=== PATIENT | male | born 1955 | race African-American/Black ===

== ENCOUNTER 2017-01-13 11:12 | Emergency (ER) | payer MEDICARE, MEDICAID ==
[2017-01-13] MEDS ORDERED: ONDANSETRON 4 MG TAB.RAPDIS PO ONE (12:35)
[2017-01-13] MEDS ORDERED: NORMAL SALINE 1000 ML 1,000 ML IV ONE (12:43)
--- NOTE | 2017-01-13 12:46 | ER Document Report ---
ED Medical Screen (RME) - General Mode of Arrival: Ambulatory Information source: Patient TRAVEL OUTSIDE OF THE [place] IN LAST 30 DAYS: No - HPI Patient complains to provider of: Epigastric and right rib pain Onset: Other - "A couple days ago" Associated Symptoms: Other - See notes above Relieved by: Food <LAWANDA OCONNELL - Last Filed: 01/13/17 12:49> <YOSEF NAVARRO - Last Filed: 01/13/17 12:49> - General Chief Complaint: Abdominal Pain Stated Complaint: ABDOMINAL PAIN/BACK PAIN/WEAKNESS Time Seen by Provider: 01/13/17 12:34 Notes: 61-year-old male presents to the ED complaining of epigastric tenderness to palpation and tenderness under the right rib for the past couple days. Patient reports that the pain worsened last night and is also complaining of distention. Patient was seen at an urgent care 3 days ago and was told that his symptoms are likely due to acid reflux. Patient denies history of a cholecystectomy. Patient reports that symptoms are better after eating. I have greeted and performed a rapid initial assessment of this patient. A comprehensive ED assessment and evaluation of the patient, analysis of test results and completion of the medical decision making process will be conducted by additional ED providers. (LAWANDA OCONNELL) - Related Data Allergies/Adverse Reactions: doxycycline [Doxycycline] Allergy (Verified 01/13/17 11:41) nausea, vomiting, diarrhea Past Medical History - General Information source: Patient - Social History Chew tobacco use (# tins/day): No Frequency of alcohol use: None Drug Abuse: None Family history: Reviewed & Not Pertinent - Past Medical History Cardiac Medical History: Reports: Hx Hypercholesterolemia Endocrine Medical History: Reports: Hx Diabetes Mellitus Type 2, Hx Hypothyroidism Renal/ Medical History: Denies: Hx Peritoneal Dialysis GI Medical History: Reports: Hx Gastroesophageal Reflux Disease Musculoskeltal Medical History: Denies Hx Arthritis, Reports Hx Musculoskeletal Trauma Psychiatric Medical History: Reports: Hx Bipolar Disorder, Hx Depression - Immunizations Immunizations up to date: Yes Hx Diphtheria, Pertussis, Tetanus Vaccination: Yes - 2003 <LAWANDA OCONNELL - Last Filed: 01/13/17 12:49> Review of Systems - Review of Systems Constitutional: No symptoms reported EENT: No symptoms reported Cardiovascular: No symptoms reported Respiratory: No symptoms reported Gastrointestinal: See HPI, Abdomen distended, Abdominal pain - Epigastric Genitourinary: No symptoms reported Male Genitourinary: No symptoms reported Musculoskeletal: See HPI, Other - right rib pain Skin: No symptoms reported Hematologic/Lymphatic: No symptoms reported Neurological/Psychological: No symptoms reported -: Yes All other systems reviewed and negative <LAWANDA OCONNELL - Last Filed: 01/13/17 12:49> Physical Exam - General General appearance: Alert In distress: None - HEENT Head: Normocephalic, Atraumatic Eyes: Normal Extraocular movements intact: Yes Pupils: PERRL - Respiratory Respiratory status: No respiratory distress - Abdominal Inspection: Normal <OCONNELL,LAWANDA - Last Filed: 01/13/17 12:49> - Abdominal Tenderness: Tender - epigastric, RUQ, mild <YOSEF NAVARRO - Last Filed: 01/13/17 12:49> - Vital signs Vitals: Temp Pulse Resp BP Pulse Ox 98.4 F 63 20 148/85 H 98 01/13/17 11:43 01/13/17 11:43 01/13/17 11:43 01/13/17 11:43 01/13/17 11:43 Course <OCONNELLJU PHOENIXUR - Last Filed: 01/13/17 12:49> <YOSEF NAVARRO - Last Filed: 01/13/17 12:49> - Re-evaluation Re-evalutation: 01/13/17 12:49 I personally performed the services described in the documentation, reviewed and edited the documentation which was dictated to the scribe in my presence, and it accurately records my words and actions. (YOSEF NAVARRO) - Vital Signs Vital signs: Temp Pulse Resp BP Pulse Ox 98.4 F 63 20 148/85 H 98 01/13/17 11:43 01/13/17 11:43 01/13/17 11:43 01/13/17 11:43 01/13/17 11:43
--- NOTE | 2017-01-13 12:54 | ER Document Report ---
ED GI/ - General Chief Complaint: Abdominal Pain Stated Complaint: ABDOMINAL PAIN/BACK PAIN/WEAKNESS Time Seen by Provider: 01/13/17 12:34 Mode of Arrival: Ambulatory Information source: Patient Notes: Patient reports a 5 day history of upper abdominal pain that radiates across his abdomen into the back area. Patient complains of feeling bloated. Patient reports nausea. Patient denies any vomiting or diarrhea. Patient denies any urinary symptoms. Patient states he was recently seen in urgent care and diagnosed with reflux. Patient does report that pain increases after eating. TRAVEL OUTSIDE OF THE [place] IN LAST 30 DAYS: No - HPI Patient complains to provider of: Abdominal pain. No: Diarrhea, Urinary retention, Vomiting Onset: Other - 5 days Timing/Duration: Waxing and waning Quality of pain: Achy Pain Level: 3 Location: Epigastric Associated symptoms: Nausea. denies: Chest pain, Diarrhea, Fever, Loss of appetite, Shortness of breath, Urinary hesitancy, Urinary frequency, Urinary retention Exacerbated by: Food Relieved by: Denies Similar symptoms previously: Yes Recently seen / treated by doctor: Yes - Related Data Allergies/Adverse Reactions: doxycycline [Doxycycline] Allergy (Verified 01/13/17 11:41) nausea, vomiting, diarrhea Past Medical History - General Information source: Patient - Social History Smoking Status: Never Smoker Chew tobacco use (# tins/day): No Frequency of alcohol use: None Drug Abuse: None Occupation: none Family History: Reviewed & Not Pertinent, CAD - Mom with an ND in her 60s, sister with an ND in her 40s., Malignancy Patient has suicidal ideation: No Patient has homicidal ideation: No - Past Medical History Cardiac Medical History: Reports: Hx Hypercholesterolemia Endocrine Medical History: Reports: Hx Hypothyroidism Renal/ Medical History: Denies: Hx Peritoneal Dialysis GI Medical History: Reports: Hx Gastroesophageal Reflux Disease Musculoskeltal Medical History: Denies Hx Arthritis, Reports Hx Musculoskeletal Trauma, Reports Other - chronic back pain Psychiatric Medical History: Reports: Hx Bipolar Disorder, Hx Depression Past Surgical History: Reports: Other - eye - Immunizations Immunizations up to date: Yes Hx Diphtheria, Pertussis, Tetanus Vaccination: Yes - 2003 Review of Systems - Review of Systems Constitutional: Weakness. denies: Chills, Fever EENT: No symptoms reported Cardiovascular: No symptoms reported. denies: Chest pain Respiratory: No symptoms reported. denies: Cough, Wheezing Gastrointestinal: Abdominal pain, Nausea. denies: Diarrhea, Vomiting Genitourinary: No symptoms reported. denies: Dysuria, Hematuria Male Genitourinary: No symptoms reported Musculoskeletal: Back pain - chronic low back pain Skin: No symptoms reported Hematologic/Lymphatic: No symptoms reported Neurological/Psychological: No symptoms reported Physical Exam - Vital signs Vitals: Temp Pulse Resp BP Pulse Ox 98.4 F 63 20 148/85 H 98 01/13/17 11:43 01/13/17 11:43 01/13/17 11:43 01/13/17 11:43 01/13/17 11:43 - General General appearance: Appears well, Alert In distress: None - HEENT Head: Normocephalic, Atraumatic Eyes: Normal Nasal: Normal Mouth/Lips: Normal Mucous membranes: Normal Neck: Normal, Supple. No: Lymphadenopathy - Respiratory Respiratory status: No respiratory distress Chest status: Nontender Breath sounds: Normal. No: Rales, Rhonchi, Stridor, Wheezing Chest palpation: Normal - Cardiovascular Rhythm: Regular Heart sounds: S1 appreciated, S2 appreciated Murmur: No - Abdominal Inspection: Normal Distension: No distension Bowel sounds: Normal Tenderness: Tender - epigastric Organomegaly: No organomegaly. No: Mass - Back Back: Normal, Nontender. No: CVA tenderness - Extremities General upper extremity: Normal inspection, Nontender General lower extremity: Normal inspection, Nontender - Neurological Neuro grossly intact: Yes Cognition: Normal Orientation: AAOx4 [place] Coma Scale Eye Opening: Spontaneous [place] Coma Scale Verbal: Oriented [place] Coma Scale Motor: Obeys Commands [place] Coma Scale Total: 15 - Psychological Associated symptoms: Normal affect, Normal mood - Skin Skin Temperature: Warm Skin Moisture: Dry Skin Color: Normal Course - Re-evaluation Re-evalutation: 01/13/17 15:16 Patient reports that the abdominal pain seems to be improved. Abdomen is soft, nontender, no guarding. Reviewed patient's diagnostic test results with Dr. Mckeon who agrees with discharge plan of care, no additional testing advised at this time. 01/13/17 15:24 The patient has been informed that they may have pre-hypertension or hypertension based on a blood pressure reading in the emergency department. I recommend that patient call the primary care provider listed on their discharge instructions or a physician of their choice by this week to arrange follow-up for further evaluation of possible pre-hypertension her hypertension. - Vital Signs Vital signs: Temp Pulse Resp BP Pulse Ox 98.4 F 63 20 148/85 H 98 01/13/17 11:43 01/13/17 11:43 01/13/17 11:43 01/13/17 11:43 01/13/17 11:43 - Laboratory Result Diagrams: 01/13/17 12:55 01/13/17 12:55 Laboratory results interpreted by me: 01/13/17 01/13/17 12:55 14:10 Total Protein 9.0 H Urine Ascorbic Acid 20 H Labs- Entire Visit 01/13/17 01/13/17 01/13/17 12:55 12:55 12:55 WBC 5.9 RBC 4.78 Hgb 14.5 Hct 44.1 MCV 92 MCH 30.3 MCHC 32.8 RDW 13.9 Plt Count 249 Seg Neutrophils % 56.4 Lymphocytes % 32.5 Monocytes % 8.1 Eosinophils % 1.9 Basophils % 1.1 Absolute Neutrophils 3.3 Absolute Lymphocytes 1.9 Absolute Monocytes 0.5 Absolute Eosinophils 0.1 Absolute Basophils 0.1 Sodium 142.8 Potassium 4.1 Chloride 104 Carbon Dioxide 27 Anion Gap 12 BUN 14 Creatinine 1.00 Est GFR ( Amer) > 60 Est GFR (Non-Af Amer) > 60 Glucose 92 Calcium 9.7 Total Bilirubin 0.6 Direct Bilirubin 0.3 Indirect Bilirubin Not Reportable Neonat Total Bilirubin Not Reportable AST 31 ALT 36 Alkaline Phosphatase 86 Troponin I < 0.012 Total Protein 9.0 H Albumin 4.7 Lipase 70.9 Urine Color Urine Appearance Urine pH Ur Specific [place] Urine Protein Urine Glucose (UA) Urine Ketones Urine Blood Urine Nitrite Urine Bilirubin Urine Urobilinogen Ur Leukocyte Esterase Urine WBC (Auto) Urine RBC (Auto) Squamous Epi Cells Auto Urine Mucus (Auto) Urine Ascorbic Acid 01/13/17 14:10 WBC RBC Hgb Hct MCV MCH MCHC RDW Plt Count Seg Neutrophils % Lymphocytes % Monocytes % Eosinophils % Basophils % Absolute Neutrophils Absolute Lymphocytes Absolute Monocytes Absolute Eosinophils Absolute Basophils Sodium Potassium Chloride Carbon Dioxide Anion Gap BUN Creatinine Est GFR ( Amer) Est GFR (Non-Af Amer) Glucose Calcium Total Bilirubin Direct Bilirubin Indirect Bilirubin Neonat Total Bilirubin AST ALT Alkaline Phosphatase Troponin I Total Protein Albumin Lipase Urine Color YELLOW Urine Appearance CLEAR Urine pH 5.0 Ur Specific [place] 1.018 Urine Protein NEGATIVE Urine Glucose (UA) NEGATIVE Urine Ketones NEGATIVE Urine Blood NEGATIVE Urine Nitrite NEGATIVE Urine Bilirubin NEGATIVE Urine Urobilinogen NEGATIVE Ur Leukocyte Esterase NEGATIVE Urine WBC (Auto) 1 Urine RBC (Auto) 4 Squamous Epi Cells Auto <1 Urine Mucus (Auto) RARE Urine Ascorbic Acid 20 H - Diagnostic Test Radiology reviewed: Reports reviewed Discharge - Discharge Clinical Impression: Epigastric pain, Elevated blood pressure reading Condition: Stable Disposition: HOME, SELF-CARE Instructions: Abdominal Pain ([facility]), Gastritis ([facility]) Additional Instructions: Return immediately for any new or worsening symptoms Followup with your primary care provider, call tomorrow to make a followup appointment Prescriptions: Omeprazole Magnesium [Prilosec Otc] 20 mg PO DAILY #15 tablet. Sucralfate [Carafate 1 gm Tablet] 1 gm PO ACHS #40 tablet Forms: Elevated Blood Pressure Referrals: LOCAL,NO [Primary Care Provider] - Follow up as needed
[2017-01-13 13:19] LABS: ABSOLUTE BASOPHILS # (AUTO) 0.1 10^3/uL (0.0-0.2); ABSOLUTE EOSINOPHILS # (AUTO) 0.1 10^3/uL (0.0-0.6); ABSOLUTE LYMPHOCYTES (AUTO) 1.9 10^3/uL (0.5-4.7); ABSOLUTE MONOCYTES (AUTO) 0.5 10^3/uL (0.1-1.4); ABSOLUTE NEUT (AUTO) 3.3 10^3/uL (1.7-8.2); BASOPHILS % (AUTO) 1.1 % (0-2); EOSINOPHILS % (AUTO) 1.9 % (0-6); HEMATOCRIT 44.1 % (37.9-51.0); HEMOGLOBIN 14.5 g/dL (13.5-17.0); HGB HCT DIFFERENCE -0.6; LYMPHOCYTES % (AUTO) 32.5 % (13-45); MEAN CORPUSCULAR HEMOGLOBIN 30.3 pg (27.0-33.4); MEAN CORPUSCULAR HGB CONC 32.8 g/dL (32.0-36.0); MEAN CORPUSCULAR VOLUME 92 fl (80-97); MONOCYTES % (AUTO) 8.1 % (3-13); RED BLOOD COUNT 4.78 10^6/uL (4.35-5.55); RED CELL DISTRIBUTION WIDTH 13.9 % (11.5-14.0); SEGMENTED NEUTROPHILS % (AUTO) 56.4 % (42-78); WHITE BLOOD COUNT 5.9 10^3/uL (4.0-10.5)
[2017-01-13 13:38] LABS: ALANINE AMINOTRANSFERASE 36 U/L (21-72); ALBUMIN 4.7 g/dL (3.5-5.0); ALKALINE PHOSPHATASE 86 U/L (38-126); ANION GAP 12 (5-19); ASPARTATE AMINO TRANSFERASE 31 U/L (17-59); BILIRUBIN,DIRECT 0.3 mg/dL (0.0-0.4); BILIRUBIN,TOTAL 0.6 mg/dL (0.2-1.3); BLOOD UREA NITROGEN 14 mg/dL (7-20); CALCIUM 9.7 mg/dL (8.4-10.2); CARBON DIOXIDE 27 mmol/L (22-30); CHLORIDE 104 mmol/L (98-107); GLUCOSE 92 mg/dL (75-110); LIPASE 70.9 U/L (23-300); POTASSIUM 4.1 mmol/L (3.6-5.0); SODIUM 142.8 mmol/L (137-145)
--- NOTE | 2017-01-13 13:40 | RADIOLOGY REPORT (SQ) ---
EXAM DESCRIPTION: CHEST PA/LAT COMPLETED DATE/TIME: 01/13/2017 1:20 pm REASON FOR STUDY: pain COMPARISON: May 2015 EXAM PARAMETERS: NUMBER OF VIEWS: two views TECHNIQUE: Digital Frontal and Lateral radiographic views of the chest acquired. RADIATION DOSE: NA LIMITATIONS: none FINDINGS: LUNGS AND PLEURA: No opacities, masses or pneumothorax. No pleural effusion. MEDIASTINUM AND HILAR STRUCTURES: No masses or contour abnormalities. HEART AND VASCULAR STRUCTURES: Heart normal size. No evidence for failure. BONES: No acute findings. HARDWARE: None in the chest. OTHER: No other significant finding. IMPRESSION: NO SIGNIFICANT RADIOGRAPHIC FINDING IN THE CHEST. TECHNICAL DOCUMENTATION: JOB ID: [id number] [employer]- All Rights Reserved
[2017-01-13] MEDS ORDERED: LIDOCAINE 2% VISCOUS SOLN 20 ML UDCUP PO ONE (14:11)
[2017-01-13] MEDS ORDERED: MAG HYDROX/AL HYDROX/SIMETH SUSP 30 ML UDCUP PO ONE (14:11)
[2017-01-13 14:32] LABS: APPEARANCE,URINE CLEAR; BILIRUBIN,URINE NEGATIVE (NEGATIVE); GLUCOSE, URINE NEGATIVE (NEGATIVE); KETONES,URINE NEGATIVE (NEGATIVE); LEUKOCYTE ESTERASE,URINE NEGATIVE (NEGATIVE); NITRITE,URINE NEGATIVE (NEGATIVE); PROTEIN,URINE NEGATIVE (NEGATIVE); URINE SPECIFIC GRAVITY 1.018; UROBILINOGEN,URINE NEGATIVE mg/dL (<2.0)
--- NOTE | 2017-01-13 15:02 | RADIOLOGY REPORT (SQ) ---
EXAM DESCRIPTION: U/S ABDOMEN LIMITED W/O DOP COMPLETED DATE/TIME: 01/13/2017 2:28 pm REASON FOR STUDY: evaluate for RUQ pain COMPARISON: None. TECHNIQUE: Dynamic and static grayscale images acquired of the abdomen and recorded on PACS. Additio nal selected color Doppler and spectral images recorded. LIMITATIONS: Study is limited due to overlying bowel gas. FINDINGS: PANCREAS: The pancreas could not be visualized due to overlying bowel gas. LIVER: No masses. Echotexture normal. LIVER VASCULATURE: Normal blood flow is identified in the portal vein. GALLBLADDER: No stones. Normal wall thickness. No pericholecystic fluid. ULTRASOUND-DETECTED LADD'S SIGN: Negative. INTRAHEPATIC DUCTS AND COMMON DUCT: CBD and intrahepatic ducts normal caliber. No filling defects. INFERIOR VENA CAVA: Normal flow. AORTA: No aneurysm. RIGHT KIDNEY: Normal size. Normal echogenicity. No solid or suspicious masses. No hydronephrosis. No calcifications. PERITONEAL AND RIGHT PLEURAL SPACE: No ascites or effusions. OTHER: No other significant findings. IMPRESSION: Somewhat limited study as noted above. No significant intra-abdominal abnormalities wer e identified. Findings as noted above TECHNICAL DOCUMENTATION: JOB ID: [id number] [employer]- All Rights Reserved
[2017-01-13 15:44] VITALS: BP 148/88
== END 2017-01-13 15:44 | disposition home or self-care (01) ==
LOC: ER 11:12
DX: K21.9 Gastro-esophageal reflux disease without esophagitis (principal); R10.13 Epigastric pain; R11.0 Nausea; R03.0 Elevated blood-pressure reading, without diagnosis of hypertension; M54.5 Low back pain; G89.29 Other chronic pain; Z88.1 Allergy status to other antibiotic agents
CPT/HCPCS: 99284; 96360; 36415; 83690; 85025; 80053; 81001; 84484; 71020; 76705; A9270; J3490; J7030; S0119

== ENCOUNTER 2020-06-26 12:42 | Emergency (ER) | payer MEDICARE, MEDICAID ==
[2020-06-26 13:48] LABS: A TYPE INFLUENZA AG NEGATIVE (NEGATIVE); B INFLUENZA AG NEGATIVE (NEGATIVE)
[2020-06-26] MEDS ORDERED: FAMOTIDINE 20 MG TABLET PO ONE (13:55)
[2020-06-26] MEDS ORDERED: DIPHENHYDRAMINE HCL 25 MG CAPSULE PO ONE (13:55)
--- NOTE | 2020-06-26 13:56 | ER Document Report ---
ED General - General Chief Complaint: Sore Throat Stated Complaint: SORE THROAT, DIZZINESS, ABDOMINAL PAIN Time Seen by Provider: 06/26/20 13:20 Primary Care Provider: WILMA JOHNSON [NO LOCAL MD] - Follow up as needed TRAVEL OUTSIDE OF THE [place] IN LAST 30 DAYS: No - HPI Notes: 65-year-old male with past medical history significant for hiatal hernia, GERD, chronic back pain on pain management to the emergency department with complaints of acute onset of abdominal pain, sensation of tight throat and lightheadedness. He states it started after he took his regular 10 mg Percocet and then ate a [place] yogurt. He states he has some difficulties with milk and had had yogurt in over 1 month. He states right after he ate a yogurt his symptoms started. He states he felt like his throat was tight. He denies any shortness of breath. He denies any rashes. He denies any diarrhea. Denies any nausea or vomiting. He denies any fevers, chills, body aches. He denies any contact for COVID-19. Patient states that his symptoms have gotten slightly better but he still feels bloated and crampy in his abdomen and also has a little bit of throat tightness. - Related Data Allergies/Adverse Reactions: doxycycline [Doxycycline] Allergy (Verified 06/26/20 13:00) nausea, vomiting, diarrhea Past Medical History - General Information source: Patient - Social History Smoking Status: Never Smoker Frequency of alcohol use: None Drug Abuse: None Family History: Reviewed & Not Pertinent, CAD - Mom with an NE in her 60s, sister with an NE in her 40s., Malignancy Patient has homicidal ideation: No - Past Medical History Cardiac Medical History: Reports: Hx Hypercholesterolemia, Hx Hypertension Endocrine Medical History: Reports: Hx Diabetes Mellitus Type 2, Hx Hypothy roidism Renal/ Medical History: Denies: Hx Peritoneal Dialysis GI Medical History: Reports: Hx Gastroesophageal Reflux Disease, Hx Hiatal Hernia Musculoskeletal Medical History: Denies Hx Arthritis, Reports Hx Musculoskeletal Trauma Psychiatric Medical History: Reports: Hx Bipolar Disorder, Hx Depression Past Surgical History: Reports: Other - eye - Immunizations Immunizations up to date: Yes Hx Diphtheria, Pertussis, Tetanus Vaccination: Yes - 2003 Review of Systems - Review of Systems Constitutional: denies: Chills, Fever EENT: See HPI Cardiovascular: denies: Chest pain, Palpitations, Heart racing, Orthopnea, Syncope, Dizziness, Lightheaded Respiratory: denies: Cough, Short of breath Gastrointestinal: Abdominal pain. denies: Diarrhea, Nausea, Vomiting Male Genitourinary: No symptoms reported Musculoskeletal: No symptoms reported Skin: No symptoms reported Hematologic/Lymphatic: No symptoms reported Neurological/Psychological: No symptoms reported -: Yes All other systems reviewed and negative Physical Exam - Vital signs Vitals: Temp Pulse Resp BP Pulse Ox 98.1 F 70 20 115/77 98 06/26/20 12:51 06/26/20 12:51 06/26/20 12:51 06/26/20 12:51 06/26/20 12:51 Interpretation: Normal Notes: PHYSICAL EXAMINATION: GENERAL: Well-appearing, well-nourished and in no acute distress. HEAD: Atraumatic, normocephalic. EYES: Pupils equal round and reactive to light, extraocular movements intact, sclera anicteric, conjunctiva are normal. ENT: nares patent, oropharynx clear without exudates. Moist mucous membranes. No Esau's angina. No tongue swelling, uvular swelling, lip swelling. NECK: Normal range of motion, supple without lymphadenopathy LUNGS: Breath sounds clear to auscultation bilaterally and equal. No wheezes rales or rhonchi. HEART: Regular rate and rhythm without murmurs ABDOMEN: generalized mild TTP, normoactive bowel sounds. No guarding, no rebound. No masses appreciated. Negative McBurney's point, negative Hernandez sign, no CVA tenderness EXTREMITIES: Normal range of motion, no pitting or edema. No cyanosis. NEUROLOGICAL: No focal neurological deficits. Moves all extremities spontaneously and on command. PSYCH: Normal mood, normal affect. SKIN: Warm, Dry, normal turgor, no rashes or lesions noted. Course - Re-evaluation Re-evalutation: 06/26/20 15:38 Patient with acute onset of throat tightness, abdominal pain, lightheadedness after taking his normal pain medicine and eating a yogurt. Does not like he might be lactose intolerant give cannot have milk. He states it makes his belly feels just the same as it feels now. Doubt that this is a coronavirus or infectious etiology. He has no cough, fevers, body aches, ear pain, true sore throat. He was swabbed for influenza and rapid strep in triage which I suspect will be negative. Rounded on patient after labs and Pepcid and Benadryl. He states that his throat tightness has completely resolved but his abdomen still feels crampy and bloated. Will try GI cocktail. Patient agrees with plan. 06/26/20 16:15 Rounded on patient. He is feeling a lot better after the GI cocktail. His abdomen feels much better as well as his throat. Suspect that this was a reacti on to the yogurt. Of asked him to stay away from dairy for the time being. He is visiting family from [place] and have asked him to follow-up with his GI specialist in [place] next week when he gets home. Have encouraged him to return if he is worse. Takes omeprazole daily for his reflux and I have encouraged him to continue that. Patient agrees with the plan. - Vital Signs Vital signs: Temp Pulse Resp BP Pulse Ox 98.1 F 70 20 115/77 98 06/26/20 12:51 06/26/20 12:51 06/26/20 12:51 06/26/20 12:51 06/26/20 12:51 - Laboratory Result Diagrams: 06/26/20 14:28 06/26/20 14:28 Laboratory results interpreted by me: 06/26/20 14:28 RBC 4.19 L Hgb 12.7 L Hct 37.2 L RDW 14.1 H Discharge - Discharge Clinical Impression: Abdominal bloating with cramps, Throat irritation Condition: Stable Disposition: HOME, SELF-CARE Instructions: Abdominal Pain ([facility]) Additional Instructions: Continue omeprazole at home. Avoid dairy products currently. Follow-up with your GI specialist without fail in [place]. Referrals: [facility] [Provider Group] - Follow up in 3-5 days
[2020-06-26 15:04] LABS: ABSOLUTE EOSINOPHILS # (AUTO) 0.2 10^3/uL (0.0-0.6); ABSOLUTE LYMPHOCYTES (AUTO) 1.8 10^3/uL (0.5-4.7); ABSOLUTE MONOCYTES (AUTO) 0.4 10^3/uL (0.1-1.4); ABSOLUTE NEUT (AUTO) 4.2 10^3/uL (1.7-8.2); BASOPHILS % (AUTO) 0.6 % (0-2); EOSINOPHILS % (AUTO) 2.6 % (0-6); HEMATOCRIT 37.2 % (37.9-51.0); HEMOGLOBIN 12.7 g/dL (13.5-17.0); LYMPHOCYTES % (AUTO) 26.9 % (13-45); MEAN CORPUSCULAR HEMOGLOBIN 30.3 pg (27.0-33.4); MEAN CORPUSCULAR HGB CONC 34.1 g/dL (32.0-36.0); MEAN CORPUSCULAR VOLUME 89 fl (80-97); MONOCYTES % (AUTO) 6.1 % (3-13); PLATELET COUNT 248 10^3/uL (150-450); RED BLOOD COUNT 4.19 10^6/uL (4.35-5.55); RED CELL DISTRIBUTION WIDTH 14.1 % (11.5-14.0); SEGMENTED NEUTROPHILS % (AUTO) 63.8 % (42-78); TOTAL CELLS COUNTED % (AUTO) 100 %; WHITE BLOOD COUNT 6.6 10^3/uL (4.0-10.5)
[2020-06-26 15:13] LABS: ALBUMIN 4.5 g/dL (3.5-5.0); ALKALINE PHOSPHATASE 81 U/L (38-126); ANION GAP 7 (5-19); ASPARTATE AMINO TRANSFERASE 43 U/L (17-59); BILIRUBIN,DIRECT 0.1 mg/dL (0.0-0.4); BILIRUBIN,TOTAL 0.4 mg/dL (0.2-1.3); BLOOD UREA NITROGEN 13 mg/dL (7-20); CALCIUM 9.8 mg/dL (8.4-10.2); CARBON DIOXIDE 29 mmol/L (22-30); CHLORIDE 104 mmol/L (98-107); GLUCOSE 90 mg/dL (75-110); POTASSIUM 4.6 mmol/L (3.6-5.0)
[2020-06-26] MEDS ORDERED: LIDOCAINE 2% VISCOUS SOLN 15 ML UDCUP PO ONE (15:22)
[2020-06-26] MEDS ORDERED: MAG HYDROX/AL HYDROX/SIMETH SUSP 30 ML UDCUP PO ONE (15:22)
[2020-06-26 16:27] VITALS: BP 124/79
== END 2020-06-26 16:27 | disposition home or self-care (01) ==
LOC: ER 12:42
DX: R14.0 Abdominal distension (gaseous) (principal); R09.89 Other specified symptoms and signs involving the circulatory and respiratory systems; J02.9 Acute pharyngitis, unspecified; R42 Dizziness and giddiness; R10.9 Unspecified abdominal pain; G89.29 Other chronic pain; M54.9 Dorsalgia, unspecified; E78.00 Pure hypercholesterolemia, unspecified; I10 Essential (primary) hypertension; E11.9 Type 2 diabetes mellitus without complications; E03.9 Hypothyroidism, unspecified
CPT/HCPCS: 99283; 36415; 87070; 87880; 83690; 85025; 80053; 87804; A9270 ×3; J3490